=== PATIENT | male | born 1955 | race Caucasian/White ===

== ENCOUNTER 2019-03-03 13:10 | Emergency (ER) | payer OTHER, SELFPAY ==
[2019-03-03 13:11] VITALS: BP 152/96; PULSE 86; RESP 16; TEMP 36.2; O2SAT 99; BMI 18.8
--- NOTE | 2019-03-03 13:24 | ED.VIS.GEN ---
History of Present Illness Chief Complaint: Upper Extremity Injury Informant: Patient Onset: Today Current Severity: Mild Maximum Severity: Moderate Narrative: Geoffrey sustained a direct impact of his left wrist prior to arrival. This was work related. He is describing pain over the distal radial region. No hand injury no elbow pain. Pain is mild, moderate with movement Past Medical History - Allergies and Home Meds Allergies/Adverse Reactions: Allergies No Known Allergies Allergy (Verified 03/03/19 13:15) Primary Care Physician: Jeffrey Villalba MD [Primary Care Provider] - 3-5 Days Past Medical History: - - Reviewed, noncontributory Lives: Alone Review of Systems Musculoskeletal: Reports: Extremity Pain. Denies: Swelling Skin: Denies: Wounds Neurological: Denies: Weakness Hematologic: Denies: Easy bruising Physical Exam Vital Signs/Narrative: Vital Signs Temp Pulse Resp BP Pulse Ox 03/03/19 13:11 97.1 F L 86 16 152/96 H 99 General: Well nourished, Well developed ENT: Moist mucous membranes Cardiovascular: Regular rate Respiratory: No distress Back: Nontender Extremities: - - There is tenderness over the distal radius region very slight snuffbox tenderness but mostly distal radius. Normal strength and sensation distally. Skin: Normal color, No rash. Negative for: Trauma Neurological: Normal Strength, Normal Sensation Diagnostic/Tx/Re-eval X-ray of the wrist interpreted by me. No fracture, normal alignment - Medical Decision Making Patient will be placed in a comfort Velcro splint. I will discharge with reassurance ED Disposition - Plan for ED Patient: Disposition: Home or Assisted Living Diagnosis: Wrist contusion Instructions: CONTUSION, Upper Extremity Prescriptions: Naproxen [Naprosyn] 500 mg PO BID PRN #20 tab Prescription Printed Referrals: Jeffrey Villalba MD [Primary Care Provider] - 3-5 Days
--- NOTE | 2019-03-03 13:34 | RAD_ITS ---
STUDY: X-RAY - LEFT WRIST REASON FOR EXAM: Male, 64 years old. Lateral pain following recent injury. TECHNIQUE: 3 view(s) of the wrist were obtained. COMPARISON: None. FINDINGS: Normal visualized distal radius and ulna. Normal radiocarpal articulation. Normal distal radioulnar articulation. Normal carpal bones. Normal carpal articulations. Normal carpometacarpal articulation of the thumb. Normal second through fifth carpometacarpal articulations. Normal visualized metacarpal bones. The soft tissue structures are unremarkable. RAD/Wrist min 3 Views IMPRESSION: Normal x-ray examination of the wrist. Electronically Signed: Aurelio Contreras, at 14:04 EDT , Service support ,
[2019-03-03 14:37] VITALS: RESP 18
== END 2019-03-03 14:38 | disposition home or self-care (01) ==
LOC: ED 13:49
PROVIDERS: Emergency Provider Emergency Medicine; Family Provider Family Medicine; PCP Family Medicine
DX: S60.212A Contusion of left wrist, initial encounter (principal); X58.XXXA Exposure to other specified factors, initial encounter; Y93.9 Activity, unspecified; Y92.9 Unspecified place or not applicable
CPT/HCPCS: 73110; 99283